=== PATIENT | female | born 1980 | race Caucasian/White ===

== ENCOUNTER 2019-07-21 01:50 | Inpatient (IN) | payer MEDICAID ==
[~2019-07-21] VITALS: Ht 154.9 cm; Wt 89.4 kg
[2019-07-21] MEDS ORDERED: ALBUTEROL (0.083%) 2.5MG/3ML NEB HHN STA ×2 (02:52→05:37)
[2019-07-21] MEDS ORDERED: IPRATROPIUM BROMIDE (0.02%) 0.5MG/2.5ML NEB HHN STA (02:52)
[2019-07-21] MEDS ORDERED: PREDNISONE 20MG TABLET PO STA (02:52)
[2019-07-21] MEDS ORDERED: KETOROLAC 30MG/ML VIAL IV STA (02:52)
[2019-07-21] MEDS ORDERED: IPRATROPIUM/ALBUTEROL 0.5-3(2.5)MG/3ML NEB ONE (03:12)
[2019-07-21] MEDS ORDERED: ALBUTEROL (0.5%) 2.5MG/0.5ML NEB HHN ONE (03:13)
[2019-07-21 03:19] LABS: BASOPHILS % 0.4 % (0.0-2.0); EOSINOPHILS % 9.2 % (0.0-5.0); HEMOGLOBIN. 13.1 g/dL (12.0-16.0); LYMPHOCYTES % 15.8 % (20.0-50.0); MEAN CORPUSCULAR HEMOGLOBIN 33.7 pg (28.0-32.0); MEAN CORPUSCULAR VOLUME 95.4 fL (81.0-99.0); MEAN PLATELET VOLUME 8.5 fl (7.4-10.4); MONOCYTES % 7.6 % (2.0-8.0); PLATELET 240 x1000/uL (130-400); RED BLOOD CELL COUNT 3.87 mill/uL (4.2-5.4); RED CELL DISTRIBUTION WIDTH 12.3 % (11.6-14.6)
[2019-07-21 03:45] LABS: CHLORIDE 111 mEq/L (98-107)
[2019-07-21] MEDS ORDERED: METHYLPREDNISOLONE SOD SUCC 125 MG/2 ML VIAL IV STA (05:37)
[2019-07-21] MEDS ORDERED: ASPIRIN 81MG TABLET PO ONE (05:45)
[2019-07-21] MEDS ORDERED: MAGNESIUM/ALUMINUM HYDROXIDE/SIMETHICONE 30ML UDC PO PRN (07:00)
[2019-07-21] MEDS ORDERED: CLONIDINE 0.1MG TABLET PO PRN (07:00)
[2019-07-21] MEDS ORDERED: ONDANSETRON HCL 4MG/2ML INJ IV PRN (07:00)
[2019-07-21] MEDS ORDERED: GUAIFENESIN/DM 600MG/30MG ER TAB 12HR PO SCH (07:00)
[2019-07-21] MEDS ORDERED: GUAIFENESIN 200MG/10ML SUGAR FREE UDC PO PRN (07:00)
[2019-07-21] MEDS ORDERED: IPRATROPIUM/ALBUTEROL 0.5-3(2.5)MG/3ML NEB NEB PRN (07:00)
[2019-07-21] MEDS ORDERED: NITROGLYCERIN 0.4MG TABLET SL SL PRN (07:00)
[2019-07-21 07:32] LABS: BG CARBOXYHEMOGLOBIN 0.5 % (0.5-1.5); BG DEOXYHEMOGLOBIN 4.7 % (0.0-5.0); BG FRACTION INSPIRED OXYGEN 21; BG HCO3 ACT 15.3 mmol/L (22.0-26.0); BG METHEMOGLOBIN 0.3 % (0.0-1.5); BG OXYGEN SATURATION 95.3 % (92.0-98.5); BG OXYHEMOGLOBIN 94.5 % (94.0-97.0); BG PCO2 26.1 mmHg (35.0-45.0); BG PH 7.385 (7.350-7.450); BG PO2 75.9 mmHg (75.0-100.0); BG SAMPLE SITE RIGHT RADIAL; BG TOTAL HEMOGLOBIN 14.1 g/dL (12.0-18.0); BG VENT MODE ROOM AIR
[2019-07-21] MEDS: ASCORBIC ACID 500 MG TABLET PO SCH ×3 (08:47→21:16)
[2019-07-21] MEDS: POTASSIUM CHLORIDE 20MEQ TABLET SR PO SCH (08:55)
[2019-07-21] MEDS: AMLODIPINE 10MG TABLET PO SCH ×2 (08:56→18:41)
[2019-07-21] MEDS: FAMOTIDINE 20MG TABLET PO SCH ×2 (09:48→21:16)
[2019-07-21] MEDS: KETOROLAC 15MG/ML VIAL IV PRN ×2 (11:23→18:31)
[2019-07-21] MEDS ORDERED: METHYLPREDNISOLONE SOD SUCC 125 MG/2 ML VIAL IV SCH (14:00)
[2019-07-21] MEDS: ACETAMINOPHEN 325MG TABLET PO PRN (16:18)
[2019-07-21 16:36] LABS: CREATINE KINASE MB FRACTION 7.1 ng/mL (0.5-3.6)
[2019-07-21 19:30] VITALS: BP 146/87
[2019-07-21] MEDS ORDERED: ZOLPIDEM TARTRATE 5MG TABLET PO PRN (21:00)
[2019-07-21] MEDS: GUAIFENESIN/DM 600MG/30MG ER TAB 12HR PO SCH (21:16)
[2019-07-21] MEDS: IPRATROPIUM/ALBUTEROL 0.5-3(2.5)MG/3ML NEB HHN SCH (21:52)
[2019-07-21] MEDS: METHYLPREDNISOLONE SOD SUCC 125 MG/2 ML VIAL IV SCH (21:52)
[2019-07-22] VITALS: BP 145/73
[2019-07-22 00:52] LABS: CREATINE KINASE MB FRACTION 4.9 ng/mL (0.5-3.6)
[2019-07-22] MEDS: IPRATROPIUM/ALBUTEROL 0.5-3(2.5)MG/3ML NEB HHN SCH ×5 (02:55→21:06)
[2019-07-22 04:00] VITALS: BP 151/86
[2019-07-22] MEDS: METHYLPREDNISOLONE SOD SUCC 125 MG/2 ML VIAL IV SCH ×3 (06:19→21:07)
[2019-07-22 08:00] VITALS: BP 152/81
[2019-07-22] MEDS: POTASSIUM CHLORIDE 20MEQ TABLET SR PO SCH (08:30)
[2019-07-22] MEDS: GUAIFENESIN/DM 600MG/30MG ER TAB 12HR PO SCH ×2 (09:04→21:08)
[2019-07-22] MEDS: FAMOTIDINE 20MG TABLET PO SCH ×2 (09:04→21:08)
[2019-07-22] MEDS ORDERED: AMLODIPINE 10MG TABLET PO NR (09:15)
[2019-07-22] MEDS: ASCORBIC ACID 500 MG TABLET PO SCH ×2 (09:19→21:08)
[2019-07-22 12:00] VITALS: BP 144/80
[2019-07-22] MEDS: ACETAMINOPHEN 325MG TABLET PO PRN ×2 (13:08→21:07)
[2019-07-22 16:00] VITALS: BP 136/73
[2019-07-22] MEDS: KETOROLAC 15MG/ML VIAL IV PRN (16:14)
[2019-07-22 20:07] VITALS: BP 140/79
[2019-07-23] MEDS: IPRATROPIUM/ALBUTEROL 0.5-3(2.5)MG/3ML NEB HHN SCH ×4 (00:32→11:27)
[2019-07-23 00:43] VITALS: BP 141/71
[2019-07-23 04:00] VITALS: BP 134/81
[2019-07-23] MEDS: METHYLPREDNISOLONE SOD SUCC 125 MG/2 ML VIAL IV SCH (06:32)
[2019-07-23 07:29] LABS: HEMATOCRIT. 39.8 % (36.0-48.0); HEMOGLOBIN. 13.7 g/dL (12.0-16.0); MEAN CORPUSCULAR HEMOGLOBIN 33.9 pg (28.0-32.0); MEAN CORPUSCULAR VOLUME 98.3 fL (81.0-99.0); MEAN PLATELET VOLUME 9.2 fl (7.4-10.4); PLATELET 256 x1000/uL (130-400); RED BLOOD CELL COUNT 4.05 mill/uL (4.2-5.4); RED CELL DISTRIBUTION WIDTH 12.2 % (11.6-14.6)
[2019-07-23 07:42] LABS: CHLORIDE 107 mEq/L (98-107)
[2019-07-23 08:00] VITALS: BP 157/89
[2019-07-23 08:01] LABS: PHOSPHORUS 4.3 mg/dL (2.5-4.9)
[2019-07-23] MEDS: ASCORBIC ACID 500 MG TABLET PO SCH (08:39)
[2019-07-23] MEDS: FAMOTIDINE 20MG TABLET PO SCH (08:40)
[2019-07-23] MEDS: GUAIFENESIN/DM 600MG/30MG ER TAB 12HR PO SCH (08:40)
[2019-07-23] MEDS ORDERED: AMLODIPINE 10MG TABLET PO SCH (09:00)
[2019-07-23 12:23] VITALS: BP 158/87
[2019-07-23 17:00] LABS: PLATELET ESTIMATE NORMAL
== END 2019-07-23 13:00 | disposition home or self-care (01) | DRG 133 ==
LOC: ER 01:50 → 7WST 06:58 → ENRESERV 18:33 → 7WST 19:53
PROVIDERS: ADMIT Internal Medicine; ATTEND Internal Medicine
DX: J96.01 Acute respiratory failure with hypoxia (principal); M62.82 Rhabdomyolysis; E87.1 Hypo-osmolality and hyponatremia; J45.901 Unspecified asthma with (acute) exacerbation; E87.6 Hypokalemia; I10 Essential (primary) hypertension
CPT/HCPCS: 36415; 36600; 71045; 80053; 82375; 82550; 82553; 82805; 83036; 83735; 83880; 84100; 84484; 85025; 93005; 93970; 94640; J1885; J2930; J7512